=== PATIENT | female | born 1985 | race Hispanic/Latino ===

== ENCOUNTER 2017-05-22 20:36 | Emergency (ER) | payer MEDICARE ==
[2017-05-22] MEDS ORDERED: Sodium Chloride 0.9% 1,000 ML IV ONE ×2 (21:32→22:23)
--- NOTE | 2017-05-22 21:45 | C.PDOC ---
History Of Present Illness 32 year old female who presents to the ER with a complaint of sharp chest pain that worsens with movement and deep breath for the past 2 weeks. Patient notes she has been traveling from [place] today and has taken tylenol for the pain but the pain has worsened today which prompted visit. Denies Hx of DVT, PE, smoking, or use of control. Time Seen by Provider: 05/22/17 21:06 Chief Complaint (Nursing): Chest Pain History Per: Patient History/Exam Limitations: no limitations Onset/Duration Of Symptoms: Days Current Symptoms Are (Timing): Still Present Modifying Factors: None Exacerbating Factors: Movement, Deep Breathing Alleviating Factors: None Recent travel outside of the [place]: No Past Medical History Reviewed: Historical Data, Nursing Documentation, Vital Signs Vital Signs: Last Vital Signs Temp 98.3 F 05/22/17 23:16 Pulse 114 H 05/22/17 23:16 Resp 20 05/22/17 23:16 BP 137/94 H 05/22/17 23:16 Pulse Ox 97 05/23/17 00:14 - Medical History PMH: No Chronic Diseases Surgical History: No Surg Hx Family History: States: Unknown Family Hx - Social History Hx Alcohol Use: No Hx Substance Use: No Review Of Systems Except As Marked, All Systems Reviewed And Found Negative. Cardiovascular: Positive for: Chest Pain Respiratory: Negative for: Shortness of Breath Gastrointestinal: Negative for: Nausea, Vomiting Physical Exam - Physical Exam Appears: Non-toxic, No Acute Distress Skin: Normal Color, Warm, Dry Head: Atraumatic, Normacephalic Oral Mucosa: Moist Chest: Symmetrical, Tenderness (Reproducible) Cardiovascular: Rhythm Regular Respiratory: Normal Breath Sounds, No Rales, No Rhonchi, No Wheezing Gastrointestinal/Abdominal: Soft, No Tenderness Extremity: No Calf Tenderness (or swelling), No Other (Palpable cord) Neurological/Psych: Oriented x3, Normal Speech, Normal Cognition ED Course And Treatment - Laboratory Results Result Diagrams: 05/22/17 21:43 05/22/17 21:43 ECG: Interpreted By Me, Viewed By Me ECG Rhythm: Sinus Tachycardia ECG Interpretation: Normal Interpretation Of ECG: Normal intervals, insignificant Q waves, interior lead Rate From EC O2 Sat by Pulse Oximetry: 97 (Room air) Pulse Ox Interpretation: Normal - Radiology CXR: Interpreted by Me, Viewed By Me CXR Interpretation: Yes: No Acute Disease - Other Rad Left foot x-ray X-Ray: Interpreted by Me, Viewed By Me Interpretation: Calcaneal spur. No acute fractures or dislocations. Medical Decision Making Medical Decision Making: Impression: Chest wall pain Plan: Blood work, CXR, EKG, IV fluids, and Toradol administered. Patient is now complaining of left ankle/foot pain for the past 4 days. Patient has swelling to left lateral malleolus, neuro/vascular intact, no calf tenderness/swelling or palpable cord. X-ray of left ankle/foot ordered, pain medication administered, will reevaluate. Patient reports improvement of pain, repeat heart rate is 99 bpm, will discharge home with instructions to follow up with PMD in 2 days. Disposition Counseled Patient/Family Regarding: Studies Performed, Diagnosis, Need For Followup, Rx Given - Disposition Referrals: [facility] [Outside] Disposition: HOME/ ROUTINE Additional Instructions: follow up with your doctor in 2 days call to make an appointment take medication as needed for pain return to hospital if symptoms worsens or progress Prescriptions: Acetaminophen/Codeine [Tylenol/Codeine 300 MG/30 MG] 1 tab PO Q4H PRN #14 tab PRN Reason: Pain, Severe (8-10) Naproxen [Naprosyn] 500 mg PO BID PRN #14 tablet PRN Reason: Pain, Moderate (4-7) Instructions: Chest Pain (ED), Plantar Fasciitis (ED), Chest Wall Pain (ED), Heel Spur (ED) Forms: General Discharge Instructions, [facility] (Thai) - Clinical Impression Clinical Impression: Chest pain - Scribe Statement The provider has reviewed the documentation as recorded by the Scribdione Hastings All medical record entries made by the Scribe were at my direction and personally dictated by me. I have reviewed the chart and agree that the record accurately reflects my personal performance of the history, physical exam, medical decision making, and the department course for this patient. I have also personally directed, reviewed, and agree with the discharge instructions and disposition.
[2017-05-22 21:50] LABS: BASO % 0.4 % (0.0-2.0); EOS # 0.2 K/uL (0.0-0.7); EOS % 3.2 % (0.0-4.0); HEMATOCRIT 39.6 % (34.0-47.0); LYMPH # 2.2 K/uL (1.0-4.3); LYMPH % 29.1 % (20.0-40.0); MEAN CELL VOLUME 90.3 fL (81.0-99.0); MEAN CORPUSCULAR HEMOGLOBIN 31.3 pg (27.0-31.0); MEAN CORPUSCULAR HGB CONC 34.7 g/dL (33.0-37.0); MEAN PLATELET VOLUME 8.4 fL (7.2-11.7); MONO # 0.6 K/uL (0.0-0.8); MONO % 7.5 % (0.0-10.0); RED CELL DISTRIBUTION WIDTH 13.7 % (11.5-14.5); WHITE BLOOD COUNT 7.7 K/uL (4.8-10.8)
[2017-05-22 21:58] LABS: CHLORIDE 100 mmol/L (98-107); POTASSIUM 3.8 mmol/L (3.6-5.2); SODIUM 135 mmol/L (132-148)
[2017-05-22 22:00] LABS: GFR AFRICAN-AMERICAN > 60
[2017-05-22 22:01] LABS: ALB/GLOB RATIO 1.4 (1.0-2.1); ALKALINE PHOSPHATASE 76 U/L (38-126); ALT/SGPT 31 U/L (9-52); AST/SGOT 22 U/L (14-36); BILIRUBIN,TOTAL 0.4 mg/dL (0.2-1.3); BLOOD UREA NITROGEN 7 mg/dL (7-17); CALCIUM 9.5 mg/dl (8.6-10.4); CARBON DIOXIDE 23 mmol/L (22-30); GLUCOSE,RANDOM 115 mg/dL (65-105); TOTAL PROTEIN 7.5 g/dL (6.3-8.3)
[2017-05-22 22:07] LABS: INR 0.9; PARTIAL THROMBOPLASTIN TIME 32 SECONDS (21-34)
[2017-05-22] MEDS ORDERED: Sodium Chloride 0.9% 1,000 ML ONE (22:10)
[2017-05-22] MEDS ORDERED: Morphine 4 MG/ML VIAL IV STA (22:44)
[2017-05-22 23:18] VITALS: TEMP 98.3
[2017-05-23 00:48] VITALS: BP 114/76; PULSE 90; RESP 16; O2SAT 99
--- NOTE | 2017-05-23 12:52 | RAD ---
HISTORY: chest pain COMPARISON: None available. TECHNIQUE: Chest PA and lateral FINDINGS: LUNGS: No focal consolidation. 6 mm nodular density projects over the right 5th posterior rib, likely related to summation artifact rather than pulmonary nodule. Please note that chest x-ray has limited sensitivity for the detection of pulmonary masses. PLEURA: No significant pleural effusion identified. No definite pneumothorax . CARDIOVASCULAR: The cardiomediastinal silhouette appears within normal limits of size. OSSEOUS STRUCTURES: Mild degenerative changes. VISUALIZED UPPER ABDOMEN: Unremarkable. OTHER FINDINGS: Examination limited by habitus. IMPRESSION: No acute findings. 6 mm nodular density projects over the right 5th posterior rib, likely related to summation artifact rather than pulmonary nodule.
--- NOTE | 2017-05-23 14:47 | RAD ---
Left foot three views History: Pain. Comparison: None available. Findings: Prominent dorsal calcaneal spurring. Degenerative changes noted at the dorsal aspect of the talonavicular joint space with bony spurring. No evidence of acute displaced fracture or dislocation. If pain persists, consider MRI. Impression: Prominent dorsal calcaneal spurring. Degenerative changes noted at the dorsal aspect of the talonavicular joint space with bony spurring. No evidence of acute displaced fracture or dislocation. If pain persists, consider MRI.
--- NOTE | 2017-05-23 15:24 | CARD ---
APPROVED REPORT EKG Measurement Heart [id number] <Conclusion> Sinus tachycardia Cannot rule out Inferior infarct, age undetermined Abnormal ECG
--- NOTE | 2017-05-23 15:33 | RAD ---
Left ankle three views History: Pain. Comparison: None available. Findings: No evidence of acute displaced fracture or dislocation. Dorsal calcaneal spurring. Bony spurring at the dorsal aspect of the midfoot at the talonavicular joint space. Impression: Degenerative changes. If pain persists, consider MRI.
== END 2017-05-23 00:52 | disposition home or self-care (01) ==
LOC: C.ER 20:36
DX: R07.9 Chest pain, unspecified (principal)
CPT/HCPCS: 71020; 73610; 73630; 80053; 82550; 84484; 84703; 85025; 85378; 85610; 85730; 93005; 96361; 96374; 96375; 99284; J1885; J2270; J7040